=== PATIENT | female | born 1955 | race Caucasian/White ===

== ENCOUNTER → 2024-04-02 08:28 | Outpatient (REF) | payer MEDICARE, OTHER, SELFPAY ==
--- NOTE | 2024-04-02 08:36 | ECG_ITS ---
Test Reason : f98.8, f39 Blood Pressure : / mmHG Vent. Rate : 059 BPM Atrial Rate : 059 BPM P-R Int : 162 ms QRS Dur : 074 ms QT Int : 414 ms P-R-T Axes : 072 029 049 degrees QTc Int : 409 ms Sinus bradycardia Otherwise normal ECG No previous ECGs available Referred By: Helga Oliver Electronically Signed By:HADLEY HERNANDEZ MD
[2024-04-02 09:00] LABS: MANUAL DIFF FLAG NO
[2024-04-02 09:12] LABS: Basophils Percent Auto 0.6 % (0-2); Eosinophils Absolute Auto 0.1 X10*3/uL (0.0-0.4); Eosinophils Percent Auto 0.9 % (0-4); Hematocrit 44.8 % (37.0-47.0); Hemoglobin 15.2 g/dl (12.0-16.0); Imm Gran Abs Auto 0.02 X10*3/uL (0.00-0.03); Imm Gran Pct Auto 0.3 % (0.0-0.4); Lymphocytes Absolute Auto 2.5 X10*3/uL (1.2-4.9); Lymphocytes Percent Auto 35.8 % (20-40); Mean Corpuscular HGB Conc 33.9 g/dl (31.0-35.0); Mean Corpuscular Hemoglobin 32.9 pg (27.0-33.0); Mean Platelet Volume 10.3 fL (9.4-12.3); Monocytes Absolute Auto 0.4 X10*3/uL (0.1-1.2); Monocytes Percent Auto 6.3 % (2-11); Neutrophils Absolute Auto 3.9 x10*3/uL (2.0-8.3); Neutrophils Percent Auto 56.1 % (45-73); Platelet Count 217 X10*3/uL (160-400); Red Blood Count 4.62 X10*6/uL (4.20-5.50); Red Cell Distribution Width 12.8 % (11.0-16.0)
[2024-04-02 09:28] LABS: Estimated Average Glucose 97 mg/dL; Hemoglobin A1C 117.5479 umol/L; Total Hemoglobin (HGBA1C) 3716.5303 umol/L
[2024-04-02 09:36] LABS: Rheumatoid Factor < 13.0 IU/mL (<15.0)
[2024-04-02 09:39] LABS: Syphilis Screen Nonreactive (Nonreactive)
[2024-04-02 09:43] LABS: Erythrocyte Sedimentation Rate 5 MM/HR (0-20)
[2024-04-02 09:56] LABS: Parathyroid Hormone Intact 70.5 pg/mL (8.7-77.1)
[2024-04-02 10:10] LABS: Alanine Aminotransferase 25 U/L (0-31); Albumin Level 4.5 g/dL (3.5-5.0); Alkaline Phosphatase 93 U/L (39-117); Anion Gap 13 (12-20); Aspartate Amino Transferase 28 U/L (5-31); Bilirubin Total 0.5 mg/dL (0.0-1.0); Blood Urea Nitrogen 17 mg/dL (9-16); C Reactive Protein < 0.04 mg/dL (< or = 0.50); Calcium 9.5 mg/dL (8.4-10.2); Carbon Dioxide 27 mmol/L (22-29); Chloride 102 mmol/L (96-108); Cholesterol 224 mg/dL (<200); Estimated Glomerular Filt Rate > 60; Glucose Fasting 78 mg/dL (60-99); HDL Cholesterol 76 mg/dL (>40); Iron 126 mcg/dL (30-160); LDL Cholesterol Calculated 116 mg/dL (<100); Magnesium 2.3 mg/dL (1.6-2.6); Percent Iron Saturation 41 % (15-50); Potassium 3.7 mmol/L (3.3-5.1); Sodium 138 mmol/L (135-145); Total Iron Binding Capacity 310 mcg/dL (228-428); Total Protein 7.3 g/dL (6.5-8.0); Triglycerides 160 mg/dL (<150); Unsaturated Iron Binding 184 ug/dL
[2024-04-02 10:14] LABS: Folate 13.7 ng/mL (> or = 4.0); Vitamin B12 992 pg/mL (200-900)
[2024-04-02 10:23] LABS: Ferritin 81 ng/mL (10-250); Free T4 (Free Thyroxine) 1.15 ng/dL (0.71-1.85); Thyroid Stimulating Hormone 1.57 uIU/mL (0.32-4.0); Vitamin D 25-OH Total 66.4 ng/mL (>30)
[2024-04-02 10:58] LABS: Lactate Dehydrogenase 188 U/L (122-220); Uric Acid 4.1 mg/dL (2.4-5.7)
[2024-04-04 04:07] LABS: Triiodothyronine T3 Free 3.7 pg/mL (2.3-4.2); Triiodothyronine T3 Total 111 ng/dL (76-181)
[2024-04-04 04:48] LABS: Lyme Abs Screen <0.90 index
[2024-04-04 05:53] LABS: Cytomegalovirus Ab IgM <30.00 AU/mL; EBV-VCA IgM Ab <36.00 U/mL
[2024-04-04 10:28] LABS: Calcium, Ionized 5.1 mg/dL (4.7-5.5)
[2024-04-04 12:29] LABS: Anti Nuclear Antibody Screen NEGATIVE (NEGATIVE)
[2024-04-04 17:09] LABS: Homocysteine 8.9 umol/L (<10.4)
[2024-04-07 01:38] LABS: Zinc 86 mcg/dL (60-130)
[2024-04-07 14:43] LABS: Nicotinamide <20 ng/mL (see note); Vit B3 - Nicotinic Acid <20 ng/mL (see note)
[2024-04-08 06:34] LABS: Cyclic Citrullinated Peptide <16 UNITS
[2024-04-08 11:59] LABS: Vitamin B1 52 nmol/L (8-30)
[2024-04-08 15:48] LABS: Thyroid Stimulating Immunoglob <89 % baseline (<140)
[2024-04-08 17:04] LABS: Alpha-Tocopherol 20.4 mg/L (5.7-19.9); Beta-Gamma Tocopherol <1.0 mg/L (<=4.3)
== END ==
LOC: HO.CARD 08:28
PROVIDERS: PCP Physician Assistant; Visit Provider Psychiatry & Neurology Psychiatry
DX: Z13.6 Encounter for screening for cardiovascular disorders (principal); Z13.1 Encounter for screening for diabetes mellitus; F98.8 Other specified behavioral and emotional disorders with onset usually occurring in childhood and adolescence; A69.20 Lyme disease, unspecified; R59.1 Generalized enlarged lymph nodes
CPT/HCPCS: 36415; 80053; 80061; 82306; 82330; 82607; 82728; 82746; 83036; 83090; 83540; 83615; 83735; 83970; 84100; 84134; 84207; 84425; 84439; 84443; 84445; 84446; 84480; 84481; 84550; 84591; 84630; 85025; 85652; 86038; 86140; 86200; 86431; 86617; 86618; 86644; 86645; 86664; 86665; 86780; 93005

== ENCOUNTER → 2024-04-02 08:36 | Outpatient (BNV) | payer MEDICARE, OTHER, SELFPAY | PROVIDERS: PCP Physician Assistant; Visit Provider Internal Medicine Cardiovascular Disease | DX: R00.1 Bradycardia, unspecified (principal) | CPT/HCPCS: 93010 ==

== ENCOUNTER → 2024-04-02 10:00 | Outpatient (BNV) | payer MEDICARE, OTHER, SELFPAY | PROVIDERS: Visit Provider Psychiatry & Neurology Psychiatry | DX: F33.2 Major depressive disorder, recurrent severe without psychotic features (principal); F09 Unspecified mental disorder due to known physiological condition; R53.82 Chronic fatigue, unspecified; F41.1 Generalized anxiety disorder | CPT/HCPCS: 99213; 99214; 99499 ==

== ENCOUNTER 2024-04-14 10:30 | Outpatient (RCR) | payer OTHER, MEDICARE, SELFPAY ==
[2024-03-31 12:43] VITALS: BMI 20.3
[2024-03-31 13:50] VITALS: BP 160/100; PULSE 76
--- NOTE | 2024-03-31 22:35 | HO.PS.ADMBH ---
HPI Date of Service: 03/31/24 Chief Complaint: depression,anxiety Sources of Information: patient interviewed, chart reviewed and crisis/core team assessment reviewed HPI Narrative: Patient is a 68 yo female with a long history of complicated medical and mental health issues, chronic Lyme disease, long COVID, She was previously on SR (has old bottle of tabs from 2021), continues on XL 150 which she has been taking for past year or so, but feels perhaps the SR was better, was having less trouble with sleep, anxiety before and also has been having intermittent frontal headaches. I suspect XL is affecting anxiety sleep, she may better tolerate a lower dose and shorter acting but for now we are making small med adjustments one at a time which is much preferred by patient. [facility] Medical History (Updated 04/07/24 @ 22:54 by Helga Oliver MD) Ulnar neuropathy Cystitis Asthma Raynauds disease Bilateral bunions Cataract Osteoarthritis History of Mccrary's palsy Hx of Lyme disease GERD (gastroesophageal reflux disease) Hypertension Surgical History (Updated 03/31/24 @ 12:40 by Nuzhat Mc RN) History of repair of ACL History of hip replacement Diagnostics Vital Signs (24Hr): Vital Signs - 24 hr 03/31/24 13:50 Pulse Rate 76 Blood Pressure 160/100 H BMI result Body Mass Index 20.3 Meds/Allergies Meds Home Medications ?Medication ?Instructions ?Recorded ?Confirmed ?Type amlodipine 5 mg tablet 5 mg PO DAILY 03/31/24 03/31/24 History bupropion HCl 150 mg 24 hr tablet, 150 mg PO DAILY 03/31/24 03/31/24 History extended release ciclopirox 8 % topical solution 1 appl topical DAILY 03/31/24 03/31/24 History lorazepam 0.5 mg tablet 0.5 mg PO BID PRN Anxiety 03/31/24 03/31/24 History modafinil 100 mg tablet 100 mg PO DAILY 03/31/24 History Allergies Allergies Allergy/AdvReac Type Severity Reaction Status Date / Time Sulfa (Sulfonamide Allergy Unknown Verified 03/31/24 12:40 Antibiotics) Assessment & Plan Assessment & Plan (1) MDD (major depressive disorder), recurrent episode, severe: Status: Acute Code(s): F33.2 - Major depressive disorder, recurrent severe without psychotic features Assessment and Plan: with considerable emotional dysregulation/hypersensitivity/reactivity (2) VILAM (generalized anxiety disorder): Status: Acute Code(s): F41.1 - Generalized anxiety disorder Assessment and Plan: r/o somatization or other somatoform disorder (3) Pain disorder associated with psychological and physical factors: Status: Acute Code(s): F45.42 - Pain disorder with related psychological factors (4) Multifactorial cognitive dysfunction: Status: Acute Code(s): F09 - Unspecified mental disorder due to known physiological condition Assessment and Plan: cognitive/executive dysfunction, attentional dysregulation - anxiety exacerbating r/o pseudodementia r/o ADHD r/o MCI r/o general medical condition Plan Admit to PHP VS reviewed: abrefile, BP 160/100;?76 bpm discussed initiating a low dose mood stabilizer - Lamictal vs Rexulti may consider initiating nootropic medication - possibly mementine also discussed Intinuv to address anxiety as well as executive dysfunction for now continue other regular medications? Routine lab work ordered EKG, routine for baseline QTc for medication considerations UDS as indicated MassPat reviewed Continue to monitor as per protocol Patient educated on: diagnosis, medication risk/benefits and medical condition Informed Consent: understands Reason for continued partial hosp. stay Substantial Risk for: inability to function, rapid decompensation and med/psych decompensation Certification I certify that partial hospital treatment is medically necessary due to the symptoms and problems resulting from the patient's mental illness and the failure to treat the patient at the partial hospital level of care would likely result in the patient requiring inpatient psychiatric care which could not be prevented at a less intensive level of care. Time Spent With Patient Time: Total time managing care of this patient today __60__ minutes.
[2024-04-01 13:45] VITALS: BP 150/80
--- NOTE | 2024-04-02 22:21 | P.PNPSP_ITS ---
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 She rambles during our conversation and continues to need frequent redirection. As planned we sat and conducted a MoCA, although she frequently requested reassurance, she would remind herself that I was unable to give feedback and though she talked aloud throughout the assessment, she surprisingly was able to perform relatively. STM was delayed but ultimately recalled 3 out of 5 and the remaining 2 were recalled with clues. scoring 26 of 30. (Patient lost 2 points on STM recalling 3 of 5 items; 1 point on language repeat, and 1 point because she could not recall full set of directions for Drawing a Clock, specifically asking for the time for hand placement, and then proceeded to misplace the hour hand) Patient reticent about medications, we are gently discussing need for mood stabilizer - Lamictal better senior care, but will need a SGA in the short term, will consider Suzie (pt did not do well on any sedating ones and experienced akithisia on ABilify. She believes her provider filled out a PA for the modafinil, or was supposed to. Pharmacy confirmed there was a script but no PA approval. Patient is ambivalent about starting this medication, asks for my opinion. I do believe a stimulant or other cognitive enhancing medication could be helpful for both the ADHD issues as well as augmentation strategy for depression, low energy, however a mood stabilizer would need to be in place. For now I suggest I could submit a PA just so we know what our options are, if it ultimately will not be authorized by insurance, then we will have that information to make further treatment decisions. For now she is agreeable to s tarting on guanfacine for anxiety. Medication Compliance: Yes Side effects from medications: No Attending Groups: Yes Review of Systems Acute medical concerns: No Medical Review of Systems: unchanged Mental Status Exam Mental Status Exam Narrative: Alert, oriented, in no acute distress. Fidgets with hands, picking at earlobes, restless, but able to remain seated throughout encounter. Eye contact intermittent. Mood depressed, anxious, labile. Affect dysthymic, but expansive. Speech productive, rambling when engaged, repetitive, but is able to allow for reciprocity. Thought process scattered, nonlinear, circuitous, perseverative, but logical and coherent. Thought content related to stressors, executive dysfunction, feeling overwhelmed, some transient helplessness and hopelessness, denies SI, intention or plan. Denies any aggressive ideation. No paranoia or delusional content elicited. No evidence of psychosis. Insight and judgment fair but adequate. Diagnostics Vital Signs (24Hr): BMI result Body Mass Index 20.3 Assessment & Plan Assessment & Plan (1) MDD (major depressive disorder), recurrent episode, severe: Status: Acute Code(s): F33.2 - Major depressive disorder, recurrent severe without psychotic features Assessment and Plan: with considerable emotional dysregulation/hypersensitivity/reactivity (2) VILMA (generalized anxiety disorder): Status: Acute Code(s): F41.1 - Generalized anxiety disorder Assessment and Plan: r/o somatization or other somatoform disorder (3) Pain disorder associated with psychological and physical factors: Status: Acute Code(s): F45.42 - Pain disorder with related psychological factors (4) Multifactorial cognitive dysfunction: Status: Acute Code(s): F09 - Unspecified mental disorder due to known physiological condition Assessment and Plan: cognitive/executive dysfunction, attentional dysregulation - anxiety exacerbating r/o pseudodementia r/o ADHD r/o general medical condition Plan start guanfacine ER 1 mg this afternoon, if tolerated she can start taking guanfacine ER 1 mg qam will complete PA for modafinil, if this is not approved we may consider low dose MPH 2.5 mg bid may consider initiating other nootropic medication - possibly mementine which may help with cognition and possibly fibromyalgia she continues on Wellbutrin XL 150 mg qam which may be too long acting, possibly interfering with sleep, and we could consider switching to SR or transitioning onto another antidepressant) perhaps Cymbalta, to allow for space to starting on a stimluating agent once mood stabilizer is in place - we continue discussion re: need for mood stabilization which patient is starting to become more open to - possibly open to Rexulti Routine lab slip given EKG, routine for baseline QTc for medication considerations UDS as indicated MoCA assessment, scored 27/30 today (04/01/24) - sent for scanning to chart Continue to monitor Patient educated on: diagnosis and medication risk/benefits Informed Consent: understands Reason for contiued partial hosp. stay Substantial Risk for: inability to function and med/psych decompensation Certification I certify that partial hospital treatment is medically necessary due to the symptoms and problems resulting from the patient's mental illness and the failure to treat the patient at the partial hospital level of care would likely result in the patient requiring inpatient psychiatric care which could not be prevented at a less intensive level of care. Total time managing care of this patient today __40__ minutes. Discharge Plan Discharge Attending provider: Helga Oliver Medications: New guanfacine 1 mg tablet extended release 24 hr 1 mg PO DAILY Qty: 30 0RF Continued amlodipine 5 mg Tablet 5 mg PO DAILY lorazepam 0.5 mg Tablet 0.5 mg PO BID PRN (Reason: Anxiety) bupropion HCl 150 mg tablet extended release 24 hr 150 mg PO DAILY ciclopirox 8 % solution 1 appl topical DAILY modafinil 100 mg Tablet 100 mg PO DAILY Rx Instructions: Needs a Prior Authorization according to pharmacy. Patient not able to hand picker. Print Language: Sri Lankan
[2024-04-03 09:28] VITALS: BP 130/80
--- NOTE | 2024-04-04 12:57 | HO.PHPPROGNO ---
Subjective Subjective Date of Service: 04/04/24 Reason For Visit: depression,anxiety Interim History: I'm tired all the time, agitated, I can't do anything, I'm just stuck. I cant get out of this. I'm just so tired. No one can help, I just dont have answers, I really loved my old home, why did i give that up. If someone could have helped me with that. I just got overwhelmed and I couldnt deal with it. Everything overwhelms me. I just feel overwhelmed all the time. I could have been so much more but I'm just stuck like this . Patient continues to request seeing provider on a daily basis, is needy, emotional, anxious. SHe continues to be intrusive with staff at times and needing redirection. She responds to supportive approach. SHe continues to report high anxiety, mood instability especially describing emotional dysregulation, high reactivity and hypersensitivity, as well as cognitive issues. LTM as well as STM appears relatively intact although difficulty with timelines however problem-solving, decision-making, prioritization, organization and other executive dysfunction is apparent, especially in manner of organizing her thoughts and communication style. She continues ruminating on perceived past failures and losses, is especially having difficulty moving on from loss of her home and spent a lot of time expressing regret, feeling of grief/bereavement, as well as detailing complaints about her current housing situation - all of which are repetitions from previous discussions. She laments lack of supports, especially with being without a romantic partner feeling sad, alone and helpless. She continues to demonstrate struggle with organizing information and relaying information in a more concise and organized manner, continues to jump around from thought to thought, but staying within the same topics of regret, shame. Despite considerable reservations about medication - after having shared her preference for more natural drugs and expressing interest in psyllocybin, which she has tried in the past, as well as other hallucinogenic substances which she feels has shown potential - she is willing to start on a mood stabilizer. Modafinil PA was rejected and apparently will not be authorized by her insurance. We discussing trying Vyvanse and can start at 10 mg. She was recently prescribed Adderall XR 10 mg but says she did not notice much other than increase in anxiety, however she does not have a mood stabilizer, nor guanfacine, in place so I'm no surprised this would likely contribute to more instability and anxiety. Guanfacine apparently is in need of a PA as well. Other options including mementine may be a more practical option as an off label approach for ADHD/executive dysfunction, especially if insurance continues to refuse stimulant options. Mementine may also help with pain issues, possibly related to fibromyalgia, although I suspect patient s/s more in keeping with ME/CFS. Pending return of lab work,immune markers, chronic viral exposure (Lyme, EBV etc). Medication Compliance: Yes Side effects from medications: No Attending Groups: Yes Review of Systems Acute medical concerns: Yes as noted above Medical Review of Systems: unchanged Mental Status Exam Mental Status Exam Narrative: Alert, oriented, in no acute distress. Fidgets with hands, picking at earlobes, restless, but able to remain seated throughout encounter. Eye contact intermittent. Mood depressed, anxious, labile. Affect dysthymic, but expansive. Speech productive, rambling when engaged, repetitive, but is able to allow for reciprocity. Thought process scattered, nonlinear, circuitous, perseverative, but logical and coherent. Thought content related to stressors, executive dysfunction, feeling overwhelmed, some transient helplessness and hopelessness, denies SI, intention or plan. Denies any aggressive ideation. No paranoia or delusional content elicited. No evidence of psychosis. Insight and judgment fair but adequate. Diagnostics Vital Signs (24Hr): BMI result Body Mass Index 20.3 Assessment & Plan Assessment & Plan (1) MDD (major depressive disorder), recurrent episode, severe: Qualifiers: Psychotic features: without psychotic features Qualified Code(s): F33.2 - Major depressive disorder, recurrent severe without psychotic features Status: Acute Code(s): F33.2 - Major depressive disorder, recurrent severe without psychotic features Assessment and Plan: with considerable emotional dysregulation/hypersensitivity/reactivity (2) VILMA (generalized anxiety disorder): Status: Acute Code(s): F41.1 - Generalized anxiety disorder Assessment and Plan: r/o somatization or other somatoform disorder (3) Multifactorial cognitive dysfunction: Status: Acute Code(s): F09 - Unspecified mental disorder due to known physiological condition Assessment and Plan: cognitive/executive dysfunction, attentional dysregulation and other causes of brain fog (dx long COVID, chronic Lyme, depression) r/o other neurological or general medical condition contributing to cognitive problems r/o ADHD r/o myalgic encephalomyelitis/chronic fatigue syndrome (4) Pain disorder associated with psychological and physical factors: Status: Acute Code(s): F45.42 - Pain disorder with related psychological factors (5) Chronic fatigue, unspecified: Status: Acute Code(s): R53.82 - Chronic fatigue, unspecified Plan pending start guanfacine ER 1 mg qd start Abilify 1-2 mg qd (otherwise other considerations - perhaps Rexulti would be better tolerated) start lisdexamfetamine 10 mg qam (?PA) may also consider consider low dose MPH 2.5 mg bid although less likely since pt on WB) may consider initiating other nootropic medication - possibly mementine which may help with cognition also brain fog 2/t long COVID continue Wellbutrin XL 150 mg qam for long weekend, though may be exacerbating insomnia and anxiety as well as skin-picking/pinching/pulling at ears/tics, so will plan to switch to SR formulation cutting dose to 75 mg qam or splitting 100 mg (as 50 mg bid in am and lunch) continue amlodipine 5 mg qd consider ME/CFS as potential diagnosis Reviewed initial lab findings CBC, CMP; pending remaining results - nutritional and rheum/immunological EKG, routine reviewed with patient UDS as indicated MoCA assessment, scored 26/30 (04/01/24) scanned to chart Continue to monitor Patient educated on: diagnosis, medication risk/benefits, substance abuse, TMS and medical condition Informed Consent: understands Reason for contiued partial hosp. stay Substantial Risk for: inability to function and med/psych decompensation Certification I certify that partial hospital treatment is medically necessary due to the symptoms and problems resulting from the patient's mental illness and the failure to treat the patient at the partial hospital level of care would likely result in the patient requiring inpatient psychiatric care which could not be prevented at a less intensive level of care. Total time managing care of this patient today _45___ minutes. Discharge Plan Discharge Attending provider: Helga Oliver Medications: New guanfacine 1 mg tablet extended release 24 hr 1 mg PO DAILY Qty: 30 0RF aripiprazole 2 mg tablet 2 mg PO BEDTIME Qty: 14 0RF lisdexamfetamine [Vyvanse] 10 mg capsule 10 mg PO QAM Qty: 30 0RF Rx Instructions: Partial Fill upon patient request. memantine 7 mg capsule,sprinkle,ER 24hr 7 mg PO .QHS Qty: 30 0RF Continued amlodipine 5 mg Tablet 5 mg PO DAILY lorazepam 0.5 mg Tablet 0.5 mg PO BID PRN (Reason: Anxiety) bupropion HCl 150 mg tablet extended release 24 hr 150 mg PO DAILY ciclopirox 8 % solution 1 appl topical DAILY modafinil 100 mg Tablet 100 mg PO DAILY Rx Instructions: Needs a Prior Authorization according to pharmacy. 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 Print Language: Gabonese
--- NOTE | 2024-04-09 21:12 | HO.PHPPROGNO ---
Subjective Subjective Date of Service: 04/09/24 Reason For Visit: depression,anxiety Interim History: Checking in with patient by phone to see how she is doing with medicaitons and to inform her that PA for guanfacine ER was approved. She started ABilify 1 mg for 3 days, increased to whole 2 mg tablet last night. Denies any side effects. She continues to have poor sleep, alhtough slept better last night 7 hours, although periodically takes CBD/THS gummies or lorazepam prn sleep. As directed she has been hoping off taking any gummies as we start new medications. Lots of questions about Wellbutrin and for now will continue until we discuss further switching to SR formulation or consider other options. Memantine ER was filled and can be picked up by patient along with the guanfacine ER. It's her birthday tomorrow so she is considering taking day off from program. Will plan to continue ABlify 2 mg tongiht (since tomorrow is birthday and would not want to cause any tiredness) and then titrate to 3 mg tomorrow night and also plan to start memantine. WIll bring in guanfacine to [facility] and start on Thurs (or tomrorow is she comes in) and will take vitals. Medication Compliance: Yes Side effects from medications: No Attending Groups: Yes Review of Systems Medical Review of Systems: unchanged Mental Status Exam Mental Status Exam Narrative: Alert, oriented, in no acute distress. Cooperative, engaged. Mood depressed. Affect anxious. Talkative. Thought process circumstantial. Thought content related to stressors, indecisiveness, executive dysfunction, chronic fatigue, low motivation, denies SI,HI, AH, VH. No paranoia or delusional content elicited. No evidence of psychosis. Insight and judgment fair but adequate. Diagnostics Vital Signs (24Hr): BMI result Body Mass Index 20.3 Assessment & Plan Assessment & Plan (1) MDD (major depressive disorder), recurrent episode, severe: Qualifiers: Psychotic features: without psychotic features Qualified Code(s): F33.2 - Major depressive disorder, recurrent severe without psychotic features Status: Acute Code(s): F33.2 - Major depressive disorder, recurrent severe without psychotic features Assessment and Plan: with considerable emotional dysregulation/hypersensitivity/reactivity (2) VILMA (generalized anxiety disorder): Status: Acute Code(s): F41.1 - Generalized anxiety disorder Assessment and Plan: r/o somatization or other somatoform disorder (3) Pain disorder associated with psychological and physical factors: Status: Acute Code(s): F45.42 - Pain disorder with related psychological factors (4) Multifactorial cognitive dysfunction: Status: Acute Code(s): F09 - Unspecified mental disorder due to known physiological condition Assessment and Plan: cognitive/executive dysfunction, attentional dysregulation - anxiety exacerbating r/o pseudodementia r/o ADHD r/o MCI r/o general medical condition Plan will gradually increase ABilify to 3 mg tomorrow night. cont titrating (?toward 5 mg) as tolerated consider Rexulti if ABilify not tolerated start guanfacine ER 1 mg qam for anxiety and may help improve tolerance of stimulating medications/WB continue Wellbutrin XL 150 mg qam for now, will plan to switch to SR 100 mg (possibly split starting at 50 bid for tolerance/less activating) modafinil PA was rejected Other consideration switching from WB to Strattera or possibly fluvoxamine/sigma-1 r agonist for brain fog (long COVID) +/- very low dose of MPH (~1.25-2.5 mg) to be benefical/tolerated donald with addition of guanfacine and lower dose WB start memantine ER 7 mg qhs to target brain fog /executive dysfunction/attentional regulation - evidence that it may be more help for ADHD sx in conjunction with a stimulant continue amlodipine 5 mg qd - recently bumped up to 1 tablet for HTN, however with upcoming changes (lowering WB, addition of guanfacine) amlodipine may need to be adjusted especially if guanfacine warrants increase in dose cont VS checks with medications changes Reviewed lab work, will discuss in further detail w patient on Sunday continue to monitor Patient educated on: diagnosis and medication risk/benefits Informed Consent: understands Reason for contiued partial hosp. stay Substantial Risk for: inability to function, rapid decompensation and med/psych decompensation Certification I certify that partial hospital treatment is medically necessary due to the symptoms and problems resulting from the patient's mental illness and the failure to treat the patient at the partial hospital level of care would likely result in the patient requiring inpatient psychiatric care which could not be prevented at a less intensive level of care. Total time managing care of this patient today __30__ minutes. Discharge Plan Discharge Attending provider: Helga Oliver Medications: New guanfacine 1 mg tablet extended release 24 hr 1 mg PO DAILY Qty: 30 0RF aripiprazole 2 mg tablet 2 mg PO BEDTIME Qty: 14 0RF lisdexamfetamine [Vyvanse] 10 mg capsule 10 mg PO QAM Qty: 30 0RF Rx Instructions: Partial Fill upon patient request. memantine 7 mg capsule,bhavyainkandre,ER 24hr 7 mg PO .QHS Qty: 30 0RF Continued amlodipine 5 mg Tablet 5 mg PO DAILY lorazepam 0.5 mg Tablet 0.5 mg PO BID PRN (Reason: Anxiety) bupropion HCl 150 mg tablet extended release 24 hr 150 mg PO DAILY ciclopirox 8 % solution 1 appl topical DAILY modafinil 100 mg Tablet 100 mg PO DAILY Rx Instructions: Needs a Prior Authorization according to pharmacy. 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 Print Language: Wolof Telehealth Telehealth Telehealth Platform: Telephone
--- NOTE | 2024-04-11 12:49 | HO.PHPPROGNO ---
Subjective Subjective Date of Service: 04/11/24 Reason For Visit: depression,anxiety Interim History: Patient seen for follow-up. Given long history of being highly sensitive to medication (and med side effects), we continue making slow progress on Abilify, now at 3 mg since last night. Also started guanfacine ER 1 mg once she arrived to program today. She reports continued issues with fatigue. Denies feeling the the guanfacine caused an increase in tiredness. Denies any adverse effects from the medication. She reports still dealing with anxiety, but maybe a little more relaxed today. I'm not sure what they are doing but I'm not feeling as much despair . She talks about plans to possibly go to [facility] next week for a tango conference/workshop/social event. Patient shares a collection of video clips of her dancing various Latin styles of dance. She is having a lot of anxiety over the decision, feels conflicted especially bc her ex-partner will be there with his new girlfriend, but says she is interested in going because she has been struggling to function and has been more avoidant and isolative in the past couple years. She occasionally pushes herself to go dance locally and keep up with interests but is exhausted sometimes for days after, and has greater difficulty motivating self to anything else that is not immediately gratifying or requires multiple steps/more complex executive functioning or decision-making. She spent much of our discussion trying to make a decision about whether she should travel out to [place], but was still just as uncertain about it as she has been for the past few days since she found out about the event. Continues to with poor quality sleep, even if she gets 7 hours does not feel rested. Continues to complain of tenderness in neck pointing to sore lymph nodes on the sides of her neck which were not appreciated on examination, nor could she find one herself, but when she stretches her neck to the side it feels like tethered and tight like I got inflamed lymph nodes . She says there was once a doctor that, by her description of symptoms,suggested she might have parotiditis but ultimately ruled that out once she was worked up. She has still not found any answers for her ongoing fatigue and tender points. She has a frontal headache, which may be related to elevated blood pressure Has not started on memantine but plans to start tonight. BP is still running high, even with guanfacine added today BP cuff reading at 143/97 (with WB XL150 and amlodipine 5 mg, although admits she was at 2.5 and is not always sure if she is remember to take the amlodipine, but believes she did last night). Will plan to switch her back to WB SR which she used to be on (@150 mg) and felt it was more effective, and did not interfere with sleep. WIll start 100 mg qam with guanfacine ER 1 mg, and then take 50 mg at noon (with another guanfacine ER 1 mg) as tolerated. Still inquiring about more natural options and laments that doctors cant prescribe psilocybin, acid, or hallucinogens. She would be interested in eskatemine but says she is totally discouraged by the time consumption/schedule for treatment. She also discusses at length her medical issues with no clear diagnoses, but has been worked up in the past for various non-specific complaints, however sefatigue and neck tenderness persist Still anxious and ruminative, but less perseveration about losses (today when reminiscing about her old home she mostly focused on missing the way sunlight infiltrated the house, and made her feel more alive and inspired and felt she could be more creative in those surroundings, as opposed to her current place which is positioned/constructed in a way where there is less natural light that gets in; she feels her apartment to be dull and dark and contributes considerably to her depressed mood, as she generally avoids artificial light. Presents as less emotionally labile today, no tearfulness, still scattered, tangential, and ruminative but more future oriented. Medication Compliance: Yes Side effects from medications: No Attending Groups: Yes Review of Systems Acute medical concerns: No as noted above Medical Review of Systems: unchanged Mental Status Exam Mental Status Exam Narrative: Alert, oriented, in no acute distress. Cooperative, engaged. Mood depressed. Affect anxious. Talkative. Thought process circumstantial. Thought content related to stressors, indecisiveness, executive dysfunction, chronic fatigue, low motivation, denies SI,HI, AH, VH. No paranoia or delusional content elicited. No evidence of psychosis. Insight and judgment fair but adequate. Diagnostics Vital Signs (24Hr): BMI result Body Mass Index 20.3 Assessment & Plan Assessment & Plan (1) MDD (major depressive disorder), recurrent episode, severe: Qualifiers: Psychotic features: without psychotic features Qualified Code(s): F33.2 - Major depressive disorder, recurrent severe without psychotic features Status: Acute Code(s): F33.2 - Major depressive disorder, recurrent severe without psychotic features Assessment and Plan: with considerable emotional dysregulation/hypersensitivity/reactivity (2) Multifactorial cognitive dysfunction: Status: Acute Code(s): F09 - Unspecified mental disorder due to known physiological condition Assessment and Plan: brain fog cognitive/executive dysfunction, attentional dysregulation - anxiety exacerbates but baseline declining over past 2-3 yrs especially since string of viral illnesses (as well as long COVID) worsens with exacerbations of depression/anxiety but persists even in their absence scored 26/30 on MoCA r/o ADHD r/o general medical condition (neurocognitive, rheumatological, immunological) (3) Chronic fatigue, unspecified: Status: Acute Code(s): R53.82 - Chronic fatigue, unspecified Assessment and Plan: h/o Lyme Disease, resolved reviewed lab work with +EBV IgG, +CMV IgG indicative of past infection (no active infection) other autoimmune and inflammatory markers unremarkable hx and px suggestive of ME/CFS - give c/o fatigue/severe tiredness that doesn't improve with rest /sleep, post-exertional malaise, cognitive issues (attentional problems, difficulty thinking, concentrating, memory issues, headaches, tender lymph notes, sensorial sensitivities (especially to light, sounds, smells, food, medicine) rule out for Myalgic Encephalomyelitis/Chronic Fatigue Syndrome (4) Other anxiety states: Status: Acute Code(s): F41.1 - Generalized anxiety disorder Plan will gradually increase ABilify to 3 mg tomorrow night. cont titrating (?toward 5 mg) as tolerated consider Rexulti if ABilify not tolerated increase guanfacine ER 1 mg to BID (AM and noon) for anxiety, hypertension switch from Wellbutrin XL 150 mg to Wellbutrin SR 100 mg (start 100 mg qam and 50 mg at noon) start memantine ER 7 mg qhs to target brain fog /executive dysfunction/attentional regulation - evidence that it may be more help for ADHD sx in conjunction with a stimulant Other consideration switching from WB to Strattera or possibly fluvoxamine/sigma-1 r agonist for brain fog (long COVID) +/- very low dose of MPH (~1.25-2.5 mg) to be benefical/tolerated donald with addition of guanfacine and lower dose WB continue amlodipine 5 mg qd - recently bumped up to 1 tablet for HTN, however with upcoming changes (lowering WB, addition of guanfacine) amlodipine may need to be adjusted especially if guanfacine warrants increase in dose cont VS checks with medications changes Reviewed lab work, will discuss in further detail w patient on Sunday continue to monitor Patient educated on: diagnosis, medication risk/benefits, substance abuse, TMS and medical condition Informed Consent: understands Reason for contiued partial hosp. stay Substantial Risk for: inability to function and med/psych decompensation Certification I certify that partial hospital treatment is medically necessary due to the symptoms and problems resulting from the patient's mental illness and the failure to treat the patient at the partial hospital level of care would likely result in the patient requiring inpatient psychiatric care which could not be prevented at a less intensive level of care. Total time managing care of this patient today __60__ minutes. Discharge Plan Discharge Attending provider: Helga Oliver Medications: New guanfacine 1 mg tablet extended release 24 hr 1 mg PO DAILY Qty: 30 0RF aripiprazole 2 mg tablet 2 mg PO BEDTIME Qty: 14 0RF memantine 7 mg capsule,sprinkle,ER 24hr 7 mg PO .QHS Qty: 30 0RF bupropion HCl [Wellbutrin SR] 100 mg tablet sustained-release 12 hr 100 mg PO BID Qty: 60 0RF Rx Instructions: in AM and lunch aripiprazole 5 mg tablet 5 mg PO DAILY Qty: 15 0RF Continued amlodipine 5 mg Tablet 5 mg PO DAILY lorazepam 0.5 mg Tablet 0.5 mg PO BID PRN (Reason: Anxiety) ciclopirox 8 % solution 1 appl topical DAILY Discontinued bupropion HCl 150 mg tablet extended release 24 hr 150 mg PO DAILY modafinil 100 mg Tablet 100 mg PO DAILY Rx Instructions: Needs a Prior Authorization according to pharmacy. 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 Print Language: Sinhala
[2024-04-14 12:25] VITALS: BP 118/82; PULSE 68; RESP 16
[2024-04-14 12:30] VITALS: BP 116/74; PULSE 68; RESP 16
--- NOTE | 2024-04-14 16:29 | HO.PHPPROGNO ---
Subjective Subjective Date of Service: 04/14/24 Reason For Visit: depression,anxiety Interim History: Patient seen for follow-up, anticipating discharge at the end of program today.? Reports no acute issues or concerns. Medication compliant, medications well-tolerated. Denies any adverse effects.? Mood is stable.? Denies any hopelessness or SI. Denies thoughts of harming self or others at this time. Denies any aggressive ideation or HI. Denies any paranoia or AH or VH. Sleep, appetite, energy stable. Alert, oriented, in no acute distress. Calm, cooperative. Mood stable, affect appropriate. Speech normal. Thought process linear, coherent, more goal-directed. Thought content related to stressors, future-oriented, denies any helplessness, hopelessness or SI.? No aggressive ideation or HI. No paranoia or delusional content elicited. No evidence of psychosis. Insight and judgment fair-good. Mental Status Exam Mental Status Exam Narrative: Alert, oriented, in no acute distress. Cooperative, engaged. Mood depressed. Affect anxious. Talkative. Thought process circumstantial. Thought content related to stressors, indecisiveness, executive dysfunction, chronic fatigue, low motivation, denies SI,HI, AH, VH. No paranoia or delusional content elicited. No evidence of psychosis. Insight and judgment fair but adequate. Diagnostics Vital Signs (24Hr): Vital Signs - 24 hr 04/14/24 12:25 04/14/24 12:30 Pulse Rate 68 68 Respiratory Rate 16 16 Blood Pressure 118/82 116/74 BMI result Body Mass Index 20.3 Assessment & Plan Assessment & Plan (1) MDD (major depressive disorder), recurrent episode, severe: Qualifiers: Psychotic features: without psychotic features Qualified Code(s): F33.2 - Major depressive disorder, recurrent severe without psychotic features Status: Acute Code(s): F33.2 - Major depressive disorder, recurrent severe without psychotic features Assessment and Plan: with considerable emotional dysregulation/hypersensitivity/reactivity (2) Multifactorial cognitive dysfunction: Status: Acute Code(s): F09 - Unspecified mental disorder due to known physiological condition Assessment and Plan: brain fog cognitive/executive dysfunction, attentional dysregulation - anxiety exacerbates but baseline declining over past 2-3 yrs especially since string of viral illnesses (as well as long COVID) worsens with exacerbations of depression/anxiety but persists even in their absence scored 26/30 on MoCA r/o ADHD r/o general medical condition (neurocognitive, rheumatological, immunological) (3) Chronic fatigue, unspecified: Status: Acute Code(s): R53.82 - Chronic fatigue, unspecified Assessment and Plan: h/o Lyme Disease, resolved reviewed lab work with +EBV IgG, +CMV IgG indicative of past infection (no active infection) other autoimmune and inflammatory markers unremarkable hx and px suggestive of ME/CFS - give c/o fatigue/severe tiredness that doesn't improve with rest /sleep, post-exertional malaise, cognitive issues (attentional problems, difficulty thinking, concentrating, memory issues, headaches, tender lymph notes, sensorial sensitivities (especially to light, sounds, smells, food, medicine) rule out for Myalgic Encephalomyelitis/Chronic Fatigue Syndrome Discharge from [facility] Continue regular medications Refills sent to pharmacy Will defer further medication management to outpatient provider *Safety plan reviewed *Discharge diagnoses, treatment course, discharge plan have been reviewed with patient (including medication regime, medication management, potential side effects) as well as treatment rationale were also revisited *Discharge paperwork signed and given to patient, copy sent for scanning to chart (4) Other anxiety states: Status: Acute Code(s): F41.1 - Generalized anxiety disorder Plan Discharge from [facility] continue Abilify 3.5 mg tomorrow night (we had discussed if not tolerated Rexulti might be better fit) continue guanfacine ER 1 mg QAM for anxiety, hypertension continue Wellbutrin SR 100 mg QAM and 50 mg daily at noon continue memantine ER 7 mg qhs to target brain fog /executive dysfunction/attentional regulation - after a week will discuss further titration to 14 mg/d with OP provider continue amlodipine 5 mg qd - suggest discussing with PCP possibly lowering amlodipine to allow for increase in guanfacine to manage HTN as well as anxiety, ADHD cont VS checks with medications changes Lab work to be faxed to PCP office, consider ME/CFS dx Review lab work Will defer further medication management to outpatient provider Patient educated on: diagnosis and medication risk/benefits Informed Consent: understands Reason for contiued partial hosp. stay Substantial Risk for: stable for discharge Certification I certify that partial hospital treatment is medically necessary due to the symptoms and problems resulting from the patient's mental illness and the failure to treat the patient at the partial hospital level of care would likely result in the patient requiring inpatient psychiatric care which could not be prevented at a less intensive level of care. Total time managing care of this patient today _40___ minutes. Discharge Plan Discharge Attending provider: Helga Oliver Medications: New memantine 7 mg capsule,sprinkle,ER 24hr 7 mg PO .QHS Qty: 30 0RF bupropion HCl [Wellbutrin SR] 100 mg tablet sustained-release 12 hr 100 mg PO BID Qty: 60 0RF Rx Instructions: in AM and lunch guanfacine 1 mg tablet extended release 24 hr 1 mg PO DAILY Qty: 30 0RF Rx Instructions: in afternoon memantine 14 mg capsule,sprinkle,ER 24hr 14 mg PO .QHS Qty: 30 0RF Continued amlodipine 5 mg Tablet 5 mg PO DAILY lorazepam 0.5 mg Tablet 0.5 mg PO BID PRN (Reason: Anxiety) ciclopirox 8 % solution 1 appl topical DAILY Changed aripiprazole 2 mg tablet 2 mg PO DAILY Qty: 30 0RF aripiprazole 5 mg tablet 5 mg PO BEDTIME Qty: 30 0RF guanfacine 1 mg tablet extended release 24 hr 1 - 2 mg PO DAILY Qty: 30 0RF Discontinued bupropion HCl 150 mg tablet extended release 24 hr 150 mg PO DAILY modafinil 100 mg Tablet 100 mg PO DAILY Rx Instructions: Needs a Prior Authorization according to pharmacy. 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 Stand Alone Forms: Patient Portal Discharge page Print Language: Liberian
--- NOTE | 2024-04-17 18:08 | PM.EVENT ---
Event Note Date of Service: 04/17/24 Event Note: Patient filled Abilify 5 mg bottle today and proceeded to drop the bottle in the parking lot of [facility]. She spoke with the pharmacist who said they can try running it through again if provider resends script. Rx efaxed to [facility]. Continue on 1/2 tablet of ABilify 5 mg tab (along with 1/2 tablet of 2 mg tab) = 3.5 mg/d Appointment with provider on Sunday 3:15pm. Time Spent With Patient Time: Total time managing care of this patient today ____ minutes.
== END 2024-04-14 23:59 | disposition home or self-care (01) ==
LOC: HO.PHPA 10:30
PROVIDERS: Visit Provider Psychiatry & Neurology Psychiatry
DX: F33.2 Major depressive disorder, recurrent severe without psychotic features (principal); F41.1 Generalized anxiety disorder; F45.42 Pain disorder with related psychological factors; F09 Unspecified mental disorder due to known physiological condition; Z79.899 Other long term (current) drug therapy
CPT/HCPCS: 90791; 90853